=== PATIENT | female | born 1985 | race Caucasian/White ===

== ENCOUNTER 2019-08-10 07:17 | Inpatient (IN) ==
[2019-08-10] MEDS ORDERED: OXYTOCIN 30 UNITS/500 ML BAG IV PRN ×2 (08:14→19:40)
--- NOTE | 2019-08-10 08:23 | History & Physical Report ---
Date of Service August 10, 2019 Assessment & Plan (1) Spontaneous rupture of amniotic membranes: IUP at 39 weeks with GDM on insulin with SPROM starting to have contractions now that are mild. see orders for more information anticipate vaginal delivery. History of Present Illness Primary Care Provider: NO PCP patient is a 33 yo EDC 08/17/19 who presents with SPROM of clear fluid at 0530 having some cramping but no regular contractions yet. GBS -Negative. complicated by GDM on insulin with well controlled blood sugars. last growth scan at 36 weeks was 49%tile EFW & 58%tile AC. 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 is not a carrier. she has uterine fibroids as well but they have been stable. Blood type is O positive. Allergies Allergy/AdvReac Type Severity Reaction Status Date / Time acetaminophen Allergy Intermediate hives Verified 08/10/19 07:34 Home Medications Home Medications Medication Instructions Recorded Confirmed Type prenat.vits,sujey,[id number] 1 tab PO DAILY 01/02/19 08/10/19 History acetone (urine) test #50 ea 03/30/19 08/03/19 Rx blood sugar diagnostic #120 ea 03/30/19 08/03/19 Rx blood-glucose meter #1 ea 03/30/19 08/03/19 Rx lancets #102 ea 03/30/19 08/03/19 Rx pen needle, diabetic 32 gauge x #50 ea 07/03/19 08/03/19 Rx 5/32" insulin NPH isoph U-100 human 15 units SQ QPM 08/10/19 08/10/19 History [Novolin N Flexpen] Patient History Medical History (Updated 08/10/19 @ 08:27 by Ellyn Arredondo MD, FACOG) Gestational diabetes uses insulin Hx of varicella Medium-chain acyl-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; FOB tested and negative Surgical History History of ovarian cystectomy Hx of LASIK [place] teeth removed Family History (Updated 01/02/19 @ 10:01 by Paula Marie) Grandmother (Maternal) Breast cancer Grandmother (Paternal) Breast cancer Cervical cancer Father Diabetes Dyslipidemia Hypertension Thyroid disease Uncle Diabetes Grandfather (Paternal) Diabetes Mother Diabetes Dyslipidemia Hypertension Aunt Osteoporosis Twins, both liveborn Other Heart disease Social History (Updated 01/02/19 @ 10:02 by Paula Marie) Preferred Language: [place] Beliefs That Will Affect Care: None marital status: marital status details: Kingston Connors (36) [phone] Current Living Situation: Spouse Current Living Situation Comment: with spouse, 1 dog, 1 cat, changes litter current occupational status: employed 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 Other Information That Helps Us Care for You: No Feels Safe at Home: Yes Safety Concerns: Feels Safe At This Time Smoking Status: Never smoker Hx Alcohol Use: No Hx Substance Use: No Review of Systems All systems reviewed & are unremarkable except as noted in HPI & below Physical Exam Constitutional: WD/WN, vitals as above Respiratory: normal respiratory effort, lungs clear to auscultation Cardiovascular: RRR, no murmur, no edema Gastrointestinal (Abdomen): normal bowel sounds, soft, nontender, no hepatosplenomegaly Psychiatric: A+Ox3, euthymic affect Genitourinary: OB Exam Abdomen: + vertex and + irregular contractions Manual OB Exam: + cervical dilation (closed), + cervical effacement (long), + station -2 and + amniotic fluid (grossly ruptured clear fluid) nitrazine positive OB Exam Monitor Tracing: + external FHT monitor used, + external uterine monitor used, + category I and + normal FHT variability Results & Data ([facility]) Vital Signs (Past 12 Hours) Vital Signs Temp Pulse Resp BP 08/10/19 07:53 80 132/78 08/10/19 07:30 98.1 F 16 08/10/19 07:27 99 H 143/88 H Coding Level of Care Code None Diagnoses Spontaneous rupture of amniotic membranes
[2019-08-10 08:35] LABS: Hematocrit (blood only) 36.2 % (37-47); Hemoglobin 11.9 g/dL (12.0-16.0); Mean Corpuscular Hemoglobin 28.9 pg (25-34); Mean Corpuscular Volume 87.9 fL (80-100); Mean Platelet Volume 10.3 fL (7.4-10.4); Platelet Count 298 K/uL (130-400); RDW Coefficient of Variation 14.5 % (11.5-14.5); RDW Standard Deviation 46.4 fL (36.4-46.3); Red Blood Count 4.12 M/uL (4.2-5.4); White Blood Count 13.67 K/uL (4.8-10.8)
[2019-08-10 08:39] LABS: Mean Corpuscular Hgb Conc 32.9 g/dL (32-36)
--- NOTE | 2019-08-10 12:16 | Obstetrical Progress Note ---
Date of Service Reviewed the current situation for the patient she is group B strep negative her contractions are starting to increase although she is not in for labor at this time I do not think a cervical check is warranted as she has ruptured membranes I recommended the option of Pitocin at this stage she is pilar a little too much for Cytotec I also discussed the option of continuing to walk around at this stage the patient does not wish Pitocin and wishes to keep ambulating I discussed that we would review this again in a few hours we did discuss the risks of infection increased with prolonged labor at the same time will minimize cervical exams at this time and the patient declines Pitocin so obviously we cannot use this at this moment August 10, 2019 Assessment & Plan Admission and Anticipated Discharge Date Admission Date: August 10, 2019 Results & Data ([facility]) Vital Signs (Past 12 Hours) Vital Signs Temp Pulse Resp BP 08/10/19 11:03 86 125/79 08/10/19 11:02 97.9 F 08/10/19 09:49 90 137/78 08/10/19 08:51 97.9 F 08/10/19 07:53 80 132/78 08/10/19 07:30 98.1 F 08/10/19 07:27 99 H 143/88 H PG Care Time/CCT Total # of Minutes Spent Total Time Spent with Patient: Total time spent is greater than 50% in coordination of care (as documented) at patient's floor/unit and/or counseling patient: Coding Level of Care Code None
--- NOTE | 2019-08-10 15:38 | Obstetrical Progress Note ---
Date of Service Patient is still not pilar adequately at this stage I have strongly recommend intervention at this time she now accepts that and going to start with oral Cytotec will consider Pitocin if this is not responsive August 10, 2019 Assessment & Plan Admission and Anticipated Discharge Date Admission Date: August 10, 2019 Results & Data ([facility]) Vital Signs (Past 12 Hours) Vital Signs Temp Pulse Resp BP 08/10/19 15:05 75 132/77 08/10/19 12:53 98.1 F 08/10/19 11:03 86 125/79 08/10/19 11:02 97.9 F 08/10/19 09:49 90 137/78 08/10/19 08:51 97.9 F 08/10/19 07:53 80 132/78 08/10/19 07:30 98.1 F 08/10/19 07:27 99 H 143/88 H PG Care Time/CCT Total # of Minutes Spent Total Time Spent with Patient: Total time spent is greater than 50% in coordination of care (as documented) at patient's floor/unit and/or counseling patient: Coding Level of Care Code None
[2019-08-10] MEDS ORDERED: miSOPROStoL 50 MCG TAB PO ONE (15:39)
--- NOTE | 2019-08-10 15:46 | Obstetrical Progress Note ---
Date of Service Patient prefers cytotec as she wishes to be able to ambulate we did review infection risks at this time I still will not do a vaginal exam as I am trying to limit the number until she has an active labor August 10, 2019 Assessment & Plan Admission and Anticipated Discharge Date Admission Date: August 10, 2019 Results & Data ([facility]) Vital Signs (Past 12 Hours) Vital Signs Temp Pulse Resp BP 08/10/19 15:05 75 132/77 08/10/19 12:53 98.1 F 08/10/19 11:03 86 125/79 08/10/19 11:02 97.9 F 08/10/19 09:49 90 137/78 08/10/19 08:51 97.9 F 08/10/19 07:53 80 132/78 08/10/19 07:30 98.1 F 08/10/19 07:27 99 H 143/88 H PG Care Time/CCT Total # of Minutes Spent Total Time Spent with Patient: Total time spent is greater than 50% in coordination of care (as documented) at patient's floor/unit and/or counseling patient: Coding Level of Care Code None
--- NOTE | 2019-08-10 18:28 | Obstetrical Progress Note ---
Date of Service states she is getting much more uncomfortable with CTX now. At 8pm will be able to start Pitocin post Cytotec dosing if needed August 10, 2019 Assessment & Plan Admission and Anticipated Discharge Date Admission Date: August 10, 2019 Results & Data ([facility]) Vital Signs (Past 12 Hours) Vital Signs Temp Pulse Resp BP 08/10/19 15:05 75 132/77 08/10/19 12:53 98.1 F 08/10/19 11:03 86 125/79 08/10/19 11:02 97.9 F 08/10/19 09:49 90 137/78 08/10/19 08:51 97.9 F 08/10/19 07:53 80 132/78 08/10/19 07:30 98.1 F 16 08/10/19 07:27 99 H 143/88 H PG Care Time/CCT Total # of Minutes Spent Total Time Spent with Patient: Total time spent is greater than 50% in coordination of care (as documented) at patient's floor/unit and/or counseling patient: Coding Level of Care Code None
--- NOTE | 2019-08-10 19:17 | Anesthesiology Consultation ---
Date of Service August 10, 2019 Assessment & Plan Chart Review Chart Review: Acceptable Risk for Surgery, Patient NOT seen in Pre Admission Testing and Acceptable Risk for Labor Epidural Consults Requested none ASA ASA2 Proposed Anesthesia Anesthesia Type: Labor Epidural and CSE Additional Comments: not covid tested History Height/Weight Height: 5 ft 2 in Weight: 74.389 kg Allergies Allergy/AdvReac Type Severity Reaction Status Date / Time acetaminophen Allergy Intermediate hives Verified 08/10/19 07:34 Medications Home Medications Medication Instructions Recorded Confirmed Last Taken prenat.vits,sujey,[id number] 1 tab PO DAILY 01/02/19 08/10/19 08/09/19 13:00 acetone (urine) test #50 ea 03/30/19 08/03/19 Unknown blood sugar diagnostic #120 ea 03/30/19 08/03/19 Unknown blood-glucose meter #1 ea 03/30/19 08/03/19 Unknown lancets #102 ea 03/30/19 08/03/19 Unknown pen needle, diabetic 32 gauge x #50 ea 07/03/19 08/03/19 Unknown " insulin NPH isoph U-100 human 15 units SQ QPM 08/10/19 08/10/19 08/10/19 03:00 [Novolin N Flexpen] Past Medical History Medical History (Updated 08/10/19 @ 08:27 by Ellyn Arredondo MD, FACOG) Gestational diabetes uses insulin Hx of varicella Medium-chain acyl-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; FOB tested and negative Exercise / Class Metabolic Activity II 4-5 Yardwork/Stairs/Walk up hill Past Family History Family History Grandmother (Maternal) Breast cancer Grandmother (Paternal) Breast cancer Cervical cancer Father Diabetes Dyslipidemia Hypertension Thyroid disease Uncle Diabetes Grandfather (Paternal) Diabetes Mother Diabetes Dyslipidemia Hypertension Aunt Osteoporosis Twins, both liveborn Other Heart disease Past Surgical History Surgical History History of ovarian cystectomy Hx of LASIK [place] teeth removed Past Anesthesia History No Hx of Anesthesia Complications and No Family Hx of Anesthesia Complications History of PONV No Hx of PONV and No Hx of Motion Sickness Social History Smoking Status: Never smoker Hx Alcohol Use: No Hx Substance Use: No substance use type: does not use Physical Exam Vital Signs Last Vital Signs Temp 36.7 C 08/10/19 12:53 Pulse 75 08/10/19 15:05 Resp 16 08/10/19 11:02 BP 132/77 08/10/19 15:05 Testing Laboratory Results 08/10/19 08:23 08/10/19 08/10/19 08/10/19 17:01 12:13 08:36 POC Glucose 101 H 113 H 122 H
--- NOTE | 2019-08-10 19:17 | Obstetrical Progress Note ---
Date of Service We will start Pitocin at 8 PM as this is 4 hours post Cytotec her contractions are improved but that she is still not in active labor still not Slot Manager is joao doss to minimize checks until she is an active labor August 10, 2019 Assessment & Plan Admission and Anticipated Discharge Date Admission Date: August 10, 2019 Results & Data ([facility]) Vital Signs (Past 12 Hours) Vital Signs Temp Pulse Resp BP 08/10/19 15:05 75 132/77 08/10/19 12:53 98.1 F 08/10/19 11:03 86 125/79 08/10/19 11:02 97.9 F 08/10/19 09:49 90 137/78 08/10/19 08:51 97.9 F 08/10/19 07:53 80 132/78 08/10/19 07:30 98.1 F 08/10/19 07:27 99 H 143/88 H PG Care Time/CCT Total # of Minutes Spent Total Time Spent with Patient: Total time spent is greater than 50% in coordination of care (as documented) at patient's floor/unit and/or counseling patient: Coding Level of Care Code None
[2019-08-10] MEDS: LACTATED RINGER'S 1,000 ML IV PRN (20:04)
--- NOTE | 2019-08-10 22:45 | Obstetrical Progress Note ---
Date of Service CTX slowly improving with Pitocin. FHR is category 1. Still not in active labor at this time will defer exam until more active August 10, 2019 Assessment & Plan Admission and Anticipated Discharge Date Admission Date: August 10, 2019 Results & Data ([facility]) Vital Signs (Past 12 Hours) Vital Signs Temp Pulse Resp BP 08/10/19 22:07 75 141/78 H 08/10/19 22:06 18 08/10/19 20:59 97.9 F 74 18 132/80 08/10/19 20:09 75 16 133/79 08/10/19 19:32 97.9 F 75 18 126/76 08/10/19 15:05 75 132/77 08/10/19 12:53 98.1 F 08/10/19 11:03 86 125/79 08/10/19 11:02 97.9 F 16 PG Care Time/CCT Total # of Minutes Spent Total Time Spent with Patient: Total time spent is greater than 50% in coordination of care (as documented) at patient's floor/unit and/or counseling patient: Coding Level of Care Code None
[2019-08-11] MEDS ORDERED: BUTORPHANOL TARTRATE 1 MG/ML VIAL IV PRN (01:13)
[2019-08-11] MEDS ORDERED: ePHEDrine sulfate 50 MG/ML AMP ONE (01:25)
[2019-08-11] MEDS ORDERED: BUPIVACAINE 0.25% 30 ML VIAL ONE (01:25)
[2019-08-11] MEDS ORDERED: fentaNYL citrate 100 MCG/2 ML VIAL ONE (01:25)
[2019-08-11] MEDS ORDERED: fentaNYL 2MCG/ML ROPIV 1.25MG/ML 100 ML BAG EPI ONE (01:26)
[2019-08-11] MEDS: LACTATED RINGER'S 1,000 ML IV PRN ×2 (01:36→06:06)
[2019-08-11] MEDS ORDERED: NALOXONE HCL 1 MG in SODIUM CHLORIDE 0.9% 1000ML 1,000 ML IV PRN (02:15)
[2019-08-11] MEDS ORDERED: NALBUPHINE HCL INJ 10 MG/ML AMP IV PRN (02:15)
[2019-08-11] MEDS ORDERED: ePHEDrine sulfate 50 MG/ML AMP IV PRN (02:15)
[2019-08-11] MEDS ORDERED: fentaNYL 2MCG/ML ROPIV 1.25MG/ML 100 ML BAG EPI PRN (02:15)
[2019-08-11] MEDS ORDERED: DiphenhydrAMINE HCL 50 MG/ML VIAL IV PRN (02:15)
[2019-08-11] MEDS ORDERED: PROMETHAZINE HCL 25 MG in SODIUM CHLORIDE 0.9% 50 ML IV PRN (02:15)
[2019-08-11] MEDS ORDERED: NALOXONE HCL 0.4 MG/1 ML VIAL/CARP IV PRN (02:15)
[2019-08-11] MEDS ORDERED: ONDANSETRON INJ 2 MG/ML 2 ML VIAL IV PRN (02:15)
--- NOTE | 2019-08-11 04:21 | Obstetrical Progress Note ---
Date of Service Patient is now 6 almost 7 cm there was a for bag of water and empty hook was used clear fluid was released baby is -1 station vertex the heart rate tracing did progressed to category 2 and Pitocin had to be stopped at this stage due to the breakage of forewaters I will hold off on the Pitocin and see if contraction pattern is does improve, otherwise we will start Pitocin at a lower rate again August 11, 2019 Assessment & Plan Admission and Anticipated Discharge Date Admission Date: August 10, 2019 Results & Data ([facility]) Vital Signs (Past 12 Hours) Vital Signs Temp Pulse Resp BP Pulse Ox 08/11/19 04:16 78 95 08/11/19 04:11 79 96 08/11/19 04:06 79 126/63 95 08/11/19 04:01 70 96 08/11/19 03:56 75 95 08/11/19 03:51 78 122/66 96 08/11/19 03:46 81 95 08/11/19 03:41 84 94 08/11/19 03:37 73 120/65 08/11/19 03:36 81 95 08/11/19 03:31 74 95 08/11/19 03:30 18 08/11/19 03:26 73 97 08/11/19 03:22 70 119/62 08/11/19 03:21 80 97 08/11/19 03:16 81 92 08/11/19 03:11 99 H 93 08/11/19 03:07 71 115/65 08/11/19 03:06 70 93 08/11/19 03:01 69 98 08/11/19 03:00 16 08/11/19 02:56 74 96 08/11/19 02:51 75 96 08/11/19 02:50 97.9 F 08/11/19 02:49 75 16 125/72 08/11/19 02:46 79 96 08/11/19 02:44 73 123/70 08/11/19 02:41 79 97 08/11/19 02:40 91 H 16 129/74 08/11/19 02:36 97 H 97 08/11/19 02:34 101 H 18 119/77 08/11/19 02:31 111 H 96 08/11/19 02:30 101 H 18 122/78 08/11/19 02:26 107 H 132/79 97 08/11/19 02:21 119 H 97 08/11/19 02:20 126 H 18 132/81 08/11/19 02:16 141 H 99 08/11/19 02:14 93 H 20 118/71 08/11/19 02:12 110 H 117/71 08/11/19 02:11 79 20 98 08/11/19 02:10 76 120/71 08/11/19 02:08 98 H 18 121/68 08/11/19 02:06 97 H 119/74 99 08/11/19 02:05 18 08/11/19 02:03 79 18 131/72 08/11/19 02:01 88 98 08/11/19 01:56 87 99 08/11/19 01:51 88 99 08/11/19 01:46 83 100 08/11/19 01:41 94 H 98 08/11/19 01:06 97.9 F 75 18 142/75 H 08/11/19 00:00 90 18 135/81 08/10/19 23:04 98.1 F 68 18 149/73 H 08/10/19 22:07 75 141/78 H 08/10/19 22:06 18 08/10/19 20:59 97.9 F 74 18 132/80 08/10/19 20:09 75 16 133/79 08/10/19 19:32 97.9 F 75 18 126/76 PG Care Time/CCT Total # of Minutes Spent Total Time Spent with Patient: Total time spent is greater than 50% in coordination of care (as documented) at patient's floor/unit and/or counseling patient: Coding Level of Care Code None
[2019-08-11] MEDS ORDERED: SODIUM CHLORIDE 0.9% 1000ML 1,000 ML IV PRN (04:31)
[2019-08-11] MEDS: CALCIUM CARBONATE 500 MG CHEWABLE TAB PO PRN ×4 (05:41→08:54)
--- NOTE | 2019-08-11 08:56 | Labor Progress Brief Note ---
Date of Service August 11, 2019 Subjective Reason For Note: Routine Evaluation pt pushing but ctx very intermittent due to variable decels on pit. pt feels pressure with ctx but denies pain Assessment & Plan (1) Supervision of elderly primigravida, antepartum: (2) Uterine fibroids affecting : (3) Insulin dependent gestational diabetes mellitus (GDM), antepartum: reviewed with that she is pushing effectively but clearly not frequent enough ctx to expect . will increase the pit gradually to impact labor pattern. cont 2nd stage. categ 2 fetus Admission and Anticipated Discharge Date Admission Date: August 10, 2019 Physical Exam Constitutional: WD/WN, vitals as above Neurologic: grossly normal Psychiatric: A+Ox3, euthymic affect Genitourinary: Manual OB Exam: + cervical dilation 10 cm, + cervical effacement 100% and + station + 3 (with pushing) OB Exam Monitor Tracing: + external FHT monitor used (135 mod variability, spont accels), + external uterine monitor used (q3-6. pit was at 1), + category II and + normal FHT variability Results & Data ([facility]) Vital Signs (Past 12 Hours) Vital Signs Temp Pulse Resp BP Pulse Ox 08/11/19 08:46 84 97 08/11/19 08:41 101 H 95 08/11/19 08:40 96 H 82 L 08/11/19 08:36 94 H 88 L 08/11/19 08:35 85 118/70 81 L 08/11/19 08:31 94 H 96 08/11/19 08:26 107 H 75 L 08/11/19 08:21 96 H 97 08/11/19 08:20 86 131/58 L 08/11/19 08:19 113 H 85 L 08/11/19 08:16 88 97 08/11/19 08:11 88 96 08/11/19 08:08 96 H 83 L 08/11/19 08:06 93 H 97 08/11/19 08:05 98 H 120/78 08/11/19 08:01 103 H 97 08/11/19 08:00 107 H 86 L 08/11/19 07:56 94 H 97 08/11/19 07:51 107 H 98 08/11/19 07:50 98.2 F 110 H 20 126/85 08/11/19 07:46 133 H 97 08/11/19 07:41 84 99 08/11/19 07:36 92 H 121/63 98 20 07:31 94 H 97 08/11/19 07:26 82 98 06 07:21 101 H 97 08/11/19 07:20 107 H 127/63 08/11/19 07:16 101 H 97 08/11/19 07:11 104 H 98 08/11/19 07:06 105 H 97 08/11/19 07:05 105 H 121/60 08/11/19 07:01 111 H 98 08/11/19 07:00 18 08/11/19 06:56 103 H 98 08/11/19 06:52 126 H 129/69 08/11/19 06:51 139 H 99 08/11/19 06:46 113 H 97 08/11/19 06:41 124 H 97 08/11/19 06:36 129 H 127/86 97 08/11/19 06:35 98.2 F 08/11/19 06:31 109 H 96 08/11/19 06:30 18 08/11/19 06:26 101 H 98 08/11/19 06:21 95 H 119/76 97 08/11/19 06:16 121 H 95 08/11/19 06:11 116 H 97 08/11/19 06:08 130 H 121/72 08/11/19 06:06 122 H 98 08/11/19 06:01 128 H 97 08/11/19 06:00 18 08/11/19 05:56 120 H 97 08/11/19 05:51 107 H 129/70 96 08/11/19 05:46 99 H 97 08/11/19 05:41 92 H 96 08/11/19 05:37 77 139/65 08/11/19 05:36 120 H 98 08/11/19 05:31 126 H 99 08/11/19 05:30 16 08/11/19 05:26 79 96 06 05:21 86 98 06 05:20 77 121/66 08/11/19 05:16 81 98 08/11/19 05:11 84 98 08/11/19 05:06 82 140/71 100 08/11/19 05:01 81 100 06/19/20 05:00 20 20 04:56 72 97 08/10/20 04:51 79 117/72 97 08/10/20 04:46 70 97 20 04:45 98.1 F 20 04:41 74 97 06/20 04:36 73 98 08/10/20 04:35 71 129/73 08/10/20 04:31 77 98 0620 04:30 18 20 04:26 76 98 20 04:21 77 97 0620 04:20 69 129/74 20 04:16 78 95 20 04:11 79 96 0620 04:06 79 126/63 95 20 04:01 70 96 20 03:56 75 95 08/10/20 03:51 78 122/66 96 08/10/20 03:46 81 95 20 03:41 84 94 20 03:37 73 120/65 08/10/20 03:36 81 95 20 03:31 74 95 20 03:30 18 20 03:26 73 97 20 03:22 70 119/62 08/10/20 03:21 80 97 20 03:16 81 92 20 03:11 99 H 93 20 03:07 71 115/65 08/10/20 03:06 70 93 20 03:01 69 98 20 03:00 16 20 02:56 74 96 08/10/20 02:51 75 96 19/20 02:50 97.9 F 20 02:49 75 16 125/72 19/20 02:46 79 96 0619/20 02:44 73 123/70 08/10/20 02:41 79 97 0619/20 02:40 91 H 16 129/74 08/10/20 02:36 97 H 97 1920 02:34 101 H 18 119/77 19/20 02:31 111 H 96 20 02:30 101 H 18 122/78 20 02:26 107 H 132/79 97 08/11/19 02:21 119 H 97 08/11/19 02:20 126 H 18 132/81 08/11/19 02:16 141 H 99 08/11/19 02:14 93 H 20 118/71 08/11/19 02:12 110 H 117/71 08/11/19 02:11 79 20 98 08/11/19 02:10 76 120/71 08/11/19 02:08 98 H 18 121/68 08/11/19 02:06 97 H 119/74 99 08/11/19 02:05 18 08/11/19 02:03 79 18 131/72 08/11/19 02:01 88 98 08/11/19 01:56 87 99 08/11/19 01:51 88 99 08/11/19 01:46 83 100 08/11/19 01:41 94 H 98 08/11/19 01:06 97.9 F 75 18 142/75 H 08/11/19 00:00 90 18 135/81 08/10/19 23:04 98.1 F 68 18 149/73 H 08/10/19 22:07 75 141/78 H 08/10/19 22:06 18 08/10/19 20:59 97.9 F 74 18 132/80 Coding Level of Care Code None Diagnoses Supervision of elderly primigravida, antepartum O09.519 Uterine fibroids affecting O34.10; D25.9 Insulin dependent gestational diabetes mellitus (GDM), antepartum
--- NOTE | 2019-08-11 10:45 | Delivery Summary ---
Vaginal Delivery Summary Date of Service August 11, 2019 Called to attend to patient as she was getting exhausted and requesting assistance. Counseled re: vacuum assistance and sve c/c/+3, . With further exam and maternal efforts is was evident that assistance would not be required. The patient pushed spontaneously to deliver a viable female Apgars 8 and 9 via over 3rd degree perineal laceration. Mouth and nose bulb suctioned at perineum. Shoulders and body delivered with ease. was vigorous and crying at . Cord clamped at 30 seconds of life and to maternal abdomen where the cord was then doubly clamped and cut. Placenta delivered spontaneously and intact, three-vessel cord. Hemostasis achieved with dilute pitocin and uterine massage and drainage of the bladder for approximately 200 cc under sterile conditions. After assessment of laceration, 2-0 vicryl used to reapproximate the sphincter and then vaginal perineal laceration repaired in usual fashion with 3-0 vicryl. Cervix and sulci intact. Rectal exam neg for sutures. EBL 300 cc. Mother and baby stable recovery. [facility] Vaginal Delivery Charge Vaginal Delivery Codes: 66634 global code for the antepartum, delivery, and post-
[2019-08-11] MEDS ORDERED: OXYTOCIN 20 UNITS in LACTATED RINGER'S 1,000 ML IV SCH (11:00)
[2019-08-11] MEDS ORDERED: DIPHTHERIA/TETANUS/PERTUSSIS 0.5 ML SYR/VIAL IM ONE (11:07)
[2019-08-11] MEDS ORDERED: BENZOCAINE 20% AER SPR 82.5 GM CAN EXT PRN (11:07)
[2019-08-11] MEDS ORDERED: OXYTOCIN 30 UNITS/500 ML BAG IV PRN (11:07)
[2019-08-11] MEDS ORDERED: SUPERCREAM 0.870% 15 GM JAR EXT PRN (11:07)
[2019-08-11] MEDS ORDERED: HYDROCORTISONE ACETATE 25 MG SUPP PR PRN (11:07)
[2019-08-11] MEDS ORDERED: bisacodyL 10 MG SUPP PR PRN (11:07)
--- NOTE | 2019-08-11 12:19 | Anesthesia Procedure Note ---
Date of Service August 11, 2019 Anesthesia Post Epidural Note Vital Signs Vital Signs: Temp Pulse Resp BP Pulse Ox 36.5 C 100 H 20 120/61 82 L 08/11/19 10:03 08/11/19 12:14 08/11/19 07:50 08/11/19 12:14 08/11/19 10:23 Notes Mental Status: alert / awake / arousable and participated in evaluation Nausea / Vomiting: adequately controlled Pain: adequately controlled Airway Patency, RR, SpO2: stable & adequate BP & HR: stable & adequate Hydration State: stable & adequate Neuraxial Anesthesia: was administered and sensory block is resolving Anesthetic Complications: no major complications apparent and Pt Satisfied with anesthetic care Epidural: Removed without complications and With tip intact
[2019-08-11] MEDS: IBUPROFEN 600 MG TAB PO PRN ×2 (14:23→20:28)
[2019-08-11] MEDS: DOCUSATE SODIUM 100 MG CAP PO SCH (20:28)
[2019-08-12] MEDS: IBUPROFEN 600 MG TAB PO PRN ×2 (03:53→16:59)
[2019-08-12 06:01] LABS: Hematocrit (blood only) 27.8 % (37-47); Hemoglobin 9.2 g/dL (12.0-16.0); Mean Corpuscular Hemoglobin 29.4 pg (25-34); Mean Corpuscular Hgb Conc 33.1 g/dL (32-36); Mean Corpuscular Volume 88.8 fL (80-100); Mean Platelet Volume 9.8 fL (7.4-10.4); Platelet Count 245 K/uL (130-400); RDW Coefficient of Variation 14.6 % (11.5-14.5); RDW Standard Deviation 47.6 fL (36.4-46.3); Red Blood Count 3.13 M/uL (4.2-5.4); White Blood Count 15.98 K/uL (4.8-10.8)
--- NOTE | 2019-08-12 06:55 | Obstetrical Progress Note ---
Date of Service August 12, 2019 Assessment & Plan (1) care and examination: stable, routine care. rhpos, ri. breast feeding. hgb noted. Subjective Ambulation: ambulating normally Voiding: no voiding problems Diet Tolerance:: regular diet Lochia:: Small Feeding Type:: breast feeding no complaints. Physical Exam Constitutional WD/WN, vitals as above Respiratory normal respiratory effort, lungs clear to auscultation Cardiovascular Rate/Rhythm: regular rate and regular rhythm Gastrointestinal (Abdomen) Inspection/Auscultation: abdomen normal to inspection Percussion/Palpation: abdomen soft Fundus firm 2cm down Musculoskeletal nt calves no edema Neurologic grossly normal Psychiatric A+Ox3, euthymic affect Results & Data ([facility]) Vital Signs (Past 12 Hours) Vital Signs Temp Pulse Resp BP Pulse Ox 08/12/19 03:30 98.2 F 98 H 18 119/79 08/11/19 23:20 98.4 F 97 H 18 126/83 08/11/19 20:20 98.6 F 96 H 20 130/76 97
[2019-08-12] MEDS: PRENATAL VITAMIN 1 TAB PO SCH (09:06)
[2019-08-12] MEDS: DOCUSATE SODIUM 100 MG CAP PO SCH ×2 (09:06→20:41)
[2019-08-13] MEDS: IBUPROFEN 600 MG TAB PO PRN ×2 (03:07→10:56)
[2019-08-13] MEDS: PRENATAL VITAMIN 1 TAB PO SCH (08:04)
[2019-08-13] MEDS: DOCUSATE SODIUM 100 MG CAP PO SCH (08:04)
--- NOTE | 2019-08-13 09:05 | Obstetrical Progress Note ---
Date of Service August 13, 2019 Assessment & Plan (1) care and examination: Day 2 s/p with 3rd degree lac. Doing well. Stable for discharge. Discussed care for 3rd degree and bowel regimen Subjective Ambulation: ambulating normally Voiding: no voiding problems Passing Gas:: Yes Diet Tolerance:: regular diet Lochia:: Moderate Physical Exam Constitutional WD/WN, vitals as above Respiratory normal respiratory effort; no respiratory distress and no labored breathing Gastrointestinal (Abdomen) Inspection/Auscultation: abdomen normal to inspection; abdomen not distended Percussion/Palpation: abdomen soft; abdomen nontender, no guarding and abdomen not rigid Genitourinary OB Exam Abdomen: + fundal height Fundus: + firm and + relation to umbilicus (Below); not tender and not boggy Results & Data ([facility]) Vital Signs (Past 12 Hours) Vital Signs Temp Pulse Resp BP 08/12/19 23:55 36.9 C 77 18 129/75
== END 2019-08-13 11:53 | disposition home or self-care (01) | DRG 768 ==
LOC: OPB 07:17 → 4S1 07:19 → 4S2 08-11 14:48